=== PATIENT | male | born 2005 | race Hispanic/Latino ===

== ENCOUNTER 2025-02-19 20:13 | Emergency (ER) | payer OTHER, BC ==
[~2025-02-19] VITALS: Ht 175.3 cm; Wt 99.8 kg
[2025-02-19 20:48] VITALS: BP 136/76; PULSE 71; RESP 18; TEMP 98.1; O2SAT 99
[2025-02-19] MEDS ORDERED: BOOSTRIX TDAP IM ONE (21:04)
[2025-02-19] MEDS ORDERED: TORADOL ONE (21:04)
[2025-02-19] MEDS: TORADOL IM STA (21:07)
[2025-02-19] MEDS: BOOSTRIX TDAP IM ONE (21:07)
[2025-02-19 22:40] VITALS: BP 130/72; PULSE 66; RESP 18; TEMP 98.1; O2SAT 99
[2025-02-19 23:11] VITALS: BP 136/76; PULSE 71; RESP 18; O2SAT 99
== END 2025-02-19 23:11 | disposition home or self-care (01) ==
LOC: ER 20:13
DX: S60.312A Abrasion of left thumb, initial encounter (principal); F17.290 Nicotine dependence, other tobacco product, uncomplicated; W22.8XXA Striking against or struck by other objects, initial encounter; Y93.89 Activity, other specified; Y92.89 Other specified places as the place of occurrence of the external cause; Y99.0 Civilian activity done for income or pay
CPT/HCPCS: 99284; 90471; 96372; 90715; 73130; J1885